=== PATIENT | female | born 1960 | race Caucasian/White ===

== ENCOUNTER 2024-09-24 10:00 | Outpatient (RCR) | payer MEDICARE, OTHER, SELFPAY | END 2024-09-24 10:46 | disposition home or self-care (01) | LOC: HO.PTCHIC 10:00 | PROVIDERS: PCP Internal Medicine | DX: M47.812 Spondylosis without myelopathy or radiculopathy, cervical region (principal) | CPT/HCPCS: 97110; 97161 ==

== ENCOUNTER 2025-07-18 11:00 | Outpatient (RCR) | payer MEDICARE, OTHER, SELFPAY | END 2025-08-02 15:57 | disposition home or self-care (01) | LOC: HO.PTCHIC 11:00 | PROVIDERS: PCP Internal Medicine; Visit Provider Orthopaedic Surgery | DX: S72.142D Displaced intertrochanteric fracture of left femur, subsequent encounter for closed fracture with routine healing (principal) | CPT/HCPCS: 97110; 97162 ==